=== PATIENT | male | born 1990 | race Caucasian/White ===

== ENCOUNTER 2022-04-27 14:25 | Day surgery (SDC) | payer SELFPAY ==
[~2022-04-27] VITALS: Ht 185.4 cm; Wt 108.4 kg
[~2022-04-27 14:25] MED LIST: NORCO 325 MG-51 TAB PO; PYRIDIUM 100MG100 MG PO; ZOFRAN ODT4 MG PO
[2022-04-27 15:31] VITALS: BP 128/78; PULSE 89; TEMP 98.4
[2022-04-27] MEDS ORDERED: PYRIDIUM 100MG100 MG PO (17:41)
[2022-04-27] MEDS ORDERED: NORCO 325 MG-51 TAB PO (17:42)
[2022-04-27 18:00] VITALS: BP 131/89; PULSE 72; TEMP 98.2
[2022-04-27 18:15] VITALS: BP 129/90; PULSE 78
[2022-04-27 18:30] VITALS: BP 139/86; PULSE 72
--- NOTE | 2022-04-27 18:40 | NUR ---
1800 RETURNS TO ROOM 2 PER CART. AWAKE, ALERT. RESP CLEAR, UNLABORED. HOB ELEVATED 40 DEGREES. VITAL SIGNS OBTAINED. DENIES PAIN OR URINARY URGENCY. CALL LIGHT AT SIDE. 1815 TOLERATES PO WATER AND MUFFIN WITHOUT NAUSEA. MOTHER IN ROOM 1823 DISCHARGE INSTRUCTIONS REVIEWED. PATIENT VERBALIZES UNDERSTANDING. COPY PROVIDED IN DISCHARGE FOLDER. 183 SITS ON EDGE OF BED. DRESSES SELF. 183 AMBULATES TO BATHROOM. PATIENT REPORTS VOIDED WITHOUT DIFFICULTY, DARK PINK URINE
== END 2022-04-27 18:44 | disposition home or self-care (01) ==
LOC: SDCO 14:25
DX: N20.2 Calculus of kidney with calculus of ureter (principal); F17.210 Nicotine dependence, cigarettes, uncomplicated
CPT/HCPCS: C1769; C2617; J0690; J2405; J2704; J3010; J7120